=== PATIENT | male | born 1980 | race Two or more races ===

== ENCOUNTER 2018-08-29 16:18 | Emergency (ER) | payer OTHER ==
[~2018-08-29] VITALS: Ht 175.3 cm; Wt 95.5 kg
[2018-08-29 16:30] VITALS: BP 160/108
== END 2018-08-29 18:29 | disposition home or self-care (01) ==
LOC: M ED 16:18
DX: Z77.21 Contact with and (suspected) exposure to potentially hazardous body fluids (principal); X58.XXXA Exposure to other specified factors, initial encounter; Y92.89 Other specified places as the place of occurrence of the external cause; Y93.F9 Activity, other caregiving; Y99.0 Civilian activity done for income or pay; Z91.040 Latex allergy status

== ENCOUNTER → 2020-02-29 | Outpatient (CLI) | payer SELFPAY | LOC: M LABSMTC 14:25 | PROVIDERS: ATTEND Pediatrics | DX: Z11.59 Encounter for screening for other viral diseases (principal); Z20.828 Contact with and (suspected) exposure to other viral communicable diseases ==